=== PATIENT | male | born 1970 | race Caucasian/White ===

== ENCOUNTER 2017-11-24 06:36 | Day surgery (SDC) | payer BC ==
--- NOTE | 2017-11-21 13:14 | HP ---
DATE OF SURGERY: 11/24/2017 ADMISSION DIAGNOSIS: Symptomatic cholelithiasis. ANTICIPATED PROCEDURE: Cholecystectomy. HISTORY OF PRESENT ILLNESS: The patient has upper abdominal pain. Ultrasound positive. Seen and examined. Procedure discussed in detail and wished to proceed. PAST MEDICAL HISTORY: ALLERGIES: DUST, POLLEN, MOLD. MEDICATIONS: Synthroid, Zyloprim, Janumet, losartan, pravastatin. PAST SURGICAL HISTORY: Knee surgery. Hemorrhoidectomy. Vasectomy. SOCIAL HISTORY: Negative. FAMILY HISTORY: Negative. REVIEW OF SYSTEMS: Diabetes mellitus type 2. PHYSICAL EXAMINATION: VITAL SIGNS: Normal. CHEST: Clear. COR: Regular. ABDOMEN: No palpable organomegaly or mass. IMPRESSION: Symptomatic cholelithiasis. PLAN: Laparoscopic cholecystectomy.
[~2017-11-24 06:36] MED LIST: Lactated Ringers 1,000 ML IV ONE; Lactated Ringers 1,000 ML IV SCH
[2017-11-24] MEDS ORDERED: Zemuron 100 MG/10 ML IV ONE (06:37)
[2017-11-24] MEDS ORDERED: SUBLIMAZE 100 MCG/2 ML IV ONE (06:37)
[2017-11-24] MEDS ORDERED: BRIDION 200MG/2ML IV ONE (06:37)
[2017-11-24] MEDS ORDERED: Zofran 4 MG/2 ML VIAL IV ONE (06:37)
[2017-11-24] MEDS ORDERED: DIPRIVAN 200 MG/20 ML IV ONE (06:37)
[2017-11-24] MEDS ORDERED: Quelicin Fliptop 200 MG/10 ML IV ONE (06:37)
[2017-11-24] MEDS ORDERED: TORAdol 30 mg Injection IV ONE (06:37)
[2017-11-24] MEDS ORDERED: Decadron 4 MG INJ IV ONE (06:37)
[2017-11-24] MEDS ORDERED: Sensorcaine 0.25% 10 ML ONE (06:42)
[2017-11-24] MEDS ORDERED: Lactated Ringers 1,000 ML IV ONE (06:42)
[2017-11-24] MEDS ORDERED: MEFOXIN 2 GM PREMIX** 2 GM/50 ML ML IV ONE (07:29)
[2017-11-24] MEDS ORDERED: MEFOXIN 2 GM PREMIX** 2 GM/50 ML ML IV SCH (08:00)
[2017-11-24] MEDS ORDERED: SUBLIMAZE 100 MCG/2 ML ONE (10:19)
[2017-11-24 11:45] VITALS: BP 124/79; PULSE 72; O2SAT 95
--- NOTE | 2017-11-24 14:06 | OP ---
SURGERY DATE/TIME: 11/24/2017 0855 PREOPERATIVE DIAGNOSIS: Symptomatic cholelithiasis. POSTOPERATIVE DIAGNOSIS: Symptomatic cholelithiasis. PROCEDURE: Laparoscopic cholecystectomy. SURGEON: Dr. Ingram. ANESTHESIA: General endotracheal tube per Nicolas Henao CRNA. CONDITION: None. COMPLICATIONS: None. INDICATIONS: A patient with upper abdominal pain. Ultrasound positive. Seen and examined. Procedure discussed. DESCRIPTION OF PROCEDURE AND FINDINGS: The patient taken to surgery. General anesthetic, routine prep and drape. Time out performed. Veress needle inserted. Opening pressure of 1, insufflating pressure 14. Four - 5's were used. Good visualization. There was a scant amount of scarring. Cystic duct defined. Cystic artery defined. Posterior branch defined. These were all triply clipped and transected. Clips noted to be across and well approximated. Gallbladder rolled out of gallbladder fossa. The gallbladder delivered back through upper abdominal port with just a small amount of widening with a Linda. Hole closure device with a [id number] suture #0 Vicryl at the umbilicus with good approximation and closure. CO2 exsufflated. 5's were pulled out. Skin closed with 4-0 Vicryl and Steri-Strips. The patient tolerated the procedure satisfactorily. Findings discussed with the family in the waiting room.
== END 2017-11-24 12:11 | disposition home or self-care (01) ==
LOC: SDC 06:36
PROVIDERS: ATTEND Surgery
PROC: 0FT44ZZ Resection of Gallbladder, Percutaneous Endoscopic Approach (ICD-10-PCS; principal; 2017-11-24)
DX: K80.20 Calculus of gallbladder without cholecystitis without obstruction (principal); I10 Essential (primary) hypertension; E03.9 Hypothyroidism, unspecified; E11.9 Type 2 diabetes mellitus without complications
CPT/HCPCS: 00840; 82962; 88304; J0330; J0694; J1100; J1885; J2405; J2704; J3010